=== PATIENT | female | born 1960 | race Caucasian/White ===

== ENCOUNTER 2020-03-21 10:43 | Emergency (ER) | payer BC, OTHER ==
[2020-03-21 11:19] LABS: CHLORIDE,CL 102 mmol/L (98-107); SODIUM,NA 139 mmol/L (136-145)
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
== END 2020-03-21 12:05 | disposition home or self-care (01) ==
LOC: LL.ED 10:43
DX: S10.93XA Contusion of unspecified part of neck, initial encounter (principal); S20.219A Contusion of unspecified front wall of thorax, initial encounter; V59.40XA Driver of pick-up truck or van injured in collision with unspecified motor vehicles in traffic accident, initial encounter
CPT/HCPCS: 36415; 71046; 72125; 80053; 85025; 99283; 99284-25